=== PATIENT | female | born 1975 | race Caucasian/White ===

== ENCOUNTER 2016-09-28 08:44 | Emergency (ER) | payer OTHER ==
[~2016-09-28] VITALS: Ht 160 cm; Wt 78.9 kg
[2016-09-28 08:47] VITALS: Ht 160 cm; Wt 78.9 kg
[2016-09-28] MEDS ORDERED: KETOROLAC 60 MG INJ IM STA (09:36)
--- NOTE | 2016-09-28 11:46 | RADRPT ---
PROCEDURE: XR Lumbar Spine. CLINICAL INDICATION: Back pain radiating to the left lower extremity. TECHNIQUE: Three views. AP, lateral and cone-down lateral view of the lumbar spine were obtained. COMPARISON: No prior studies are available for comparison. FINDINGS: There is normal stature and alignment of the vertebrae. There is no fracture. There is no lytic or blastic lesion. The disk height is normal. The paravertebral soft tissues are unremarkable. IMPRESSION: 1. Unremarkable images of the lumbar spine. 2. If there is clinical concern regarding a disk abnormality, correlation with MRI of the lumbar sp ine without contrast is advised. RPTAT: QQ .Inocente Gonzales MD, MD Date Time Electronically viewed and signed by .Inocente Gonzales MD, MD on 09/28/2016 11:46 .R/
--- NOTE | 2016-09-28 11:51 | ERD ---
ER Documentation Chief Complaint Date/Time DATE: 09/28/16 Chief Complaint Back pain radiating down the left leg HPI The patient is a 41-year-old female who presents to the Emergency Department with complaint of back pain radiating down the left lower extremity that began today. The patient reports a history of similar symptoms one time in the past, at which time she was diagnosed with sciatica. She notes that last night she was leaning over to put her shoe on, and even since standing back up, she has been experiencing a burning pain to the left lumbar back that radiates into the left buttocks and down the left lower extremity. The pain is worse upon laying flat, and is somewhat improved with sitting. She denies any numbness, paresthesias or weakness of the distal extremity. Denies restricted range of motion. Denies foot drop. Denies fevers, chills, nausea, vomiting, dysuria, hematuria or flank pain. Denies bowel or bladder disturbances, urinary retention or lower extremity weakness. Denies saddle-region anesthesia. She rates her current pain as 4/10, but has not yet taken any medication for pain relief. Denies history of IV drug use or immunocompromised state. ROS All systems reviewed and are negative except as per history of present illness. Medications Home Meds Active Scripts Hydrocodone/Acetaminophen (Edmonson 5-325 Tablet) 1 Each Tablet, 1 EACH PO Q6, #6 TAB Prov:ALESSANDRA FARLEY PA-C 09/28/16 Ibuprofen* (Motrin*) 600 Mg Tab, 600 MG PO Q6, #20 TAB Prov:ALESSANDRA FARLEY PA-C 09/28/16 Methylprednisolone* (Medrol* DOSE PACK) 4 Mg/Dose-Pack Tab.ds.pk, 4 MG PO . DIRECTED, #1 PACKET Prov:ALESSANDRA FARLEY PA-C 09/28/16 Allergies Allergies: Coded Allergies: No Known Drug Allergies (Verified Allergy, Mild, 08/02/14) PMhx/Soc History of Surgery: No Anesthesia Reaction: No Hx Neurological Disorder: No Hx Respiratory Disorders: No Hx Cardiac Disorders: No Hx Psychiatric Problems: No Hx Miscellaneous Medical Probl: No Hx Alcohol Use: No Hx Substance Use: No Hx Tobacco Use: No Smoking Status: Never smoker Physical Exam Vitals Vital Signs Date Time Temp Pulse Resp B/P Pulse Ox O2 Delivery O2 Flow Rate FiO2 09/28/16 08:47 98.1 74 18 124/74 99 Physical Exam GENERAL: Well-developed, well-nourished, in no acute distress HEENT: Head is normocephalic, atraumatic. No scleral pallor or icterus. Conjunctiva pink. Moist mucous membranes. NECK: Supple. No masses, no tenderness, no lymphadenopathy. Trachea midline. No nuchal rigidity. Full range of motion. RESPIRATORY: Lungs are clear to auscultation bilaterally. Equal breath sounds. Normal expiratory effort. CARDIOVASCULAR: Regular rate and rhythm. S1 and S2 normal. GASTROINTESTINAL: Abdomen is soft, nontender, and nondistended. Normal bowel sounds. No abdominal bruits. No pulsatile abdominal masses. FLANK: No CVA tenderness. BACK: No midline tenderness. Tenderness to palpation over the paraspinal muscles of the left lumbosacral back, L4-S1. No vertebral point tenderness. No foot drop. No saddle-region anesthesia. Positive left-sided straight leg raise. Negative right-sided straight leg raise. No warmth. No crepitus. No gross deformities. Strength 5/5 to lower extremities bilaterally. EXTREMITIES: No clubbing, cyanosis, or edema. Normal skin perfusion. Moving all extremities. No focal swelling or erythema. Distal pulses are palpable, 2+ bilaterally. Capillary refill is less than 2 seconds. NEUROLOGIC: The patient is alert, awake, and oriented x 3. No focal neurologic deficits. Motor and sensation grossly intact. INTEGUMENT: Skin is clean, dry and intact. No rashes, lesions, vesicles or petechiae present. PSYCHIATRIC: Appropriate; Cooperative. Results 24 hrs Current Medications Medications (Trade) Dose Ordered Sig/Santa Route PRN Reason Start Time Stop Time Status Last Admin Dose Admin Ketorolac Tromethamine (Toradol) 60 mg ONCE STAT IM 09/28/16 09:36 09/28/16 09:37 DC 09/28/16 09:57 Procedures/MDM DIAGNOSTIC TESTS AND INTERPRETATION: PROCEDURE: XR Lumbar Spine. CLINICAL INDICATION: Back pain radiating to the left lower extremity. TECHNIQUE: Three views. AP, lateral and cone-down lateral view of the lumbar spine were obtained. COMPARISON: No prior studies are available for comparison. FINDINGS:There is normal stature and alignment of the vertebrae. There is no fracture. There is no lytic or blastic lesion. The disk height is normal. The paravertebral soft tissues are unremarkable. IMPRESSION: 1. Unremarkable images of the lumbar spine. 2. If there is clinical concern regarding a disk abnormality, correlation with MRI of the lumbar spine without contrast is advised. .Inocente Gonzales MD, Date Time Electronically viewed and signed by .Inocente Gonzales MD, on 09/28/2016 11:46 MEDICAL DECISION MAKING: This is a 43-year-old female presenting to the Emergency Department with complaint of left lumbar back pain radiating down the left lower extremity. On physical examination the patient had tenderness to palpation noted over the lumbar back, particularly L4-S1. She had a positive left straight leg raise and crossed leg raise, with no saddle-region anesthesia noted. Vital signs were appropriate. She exhibited no altered mental status, neurologic deficits, saddle anesthesia, bowel or bladder disturbances, incontinence, urinary retention, or lower extremity motor or sensory deficits. The differential diagnosis includes, but is not limited to, cauda equina syndrome, epidural abscess, epidural hematoma, osteomyelitis, vertebral fracture , lumbosacral strain, herniated disc, spinal stenosis, nephrolithiasis, osteoarthritis, sciatica, spondylolisthesis, bursitis, fracture, pyelonephritis , abdominal aortic aneurysm, aortic dissection, herpes zoster, radiculopathy, myelopathy, neoplastic disease. No significant abnormalities were noted on x- ray imaging. After rest and administration of Toradol, the patient reports no new complaints, and decreased pain. Upon my review and interpretation of the patient's presentation, clinical data, and overall ER course, I believe the patient's symptoms are most consistent with lumbar back pain with sciatica, uncertain etiology. It is possible that the patient's symptoms are secondary to an underlying herniated disc, however patient will need outpatient MRI for further evaluation. I doubt cord compression or cauda equina syndrome, as patient is with equal, strong motor in bilateral lower extremities, no bowel/bladder disturbances, incontinence or retention, no saddle-anesthesia. Doubt vertebral fracture, no midline bony tenderness, no history of significant recent trauma. Doubt neoplastic disease, metastases unlikely given no night sweats, systemic symptoms, no risk factors. Doubt epidural abscess, patient is afebrile, with no history of IV drug use and is immunocompetent. Renal/aortic pathology not consistent with patient history or physical examination, no pulsatile abdominal masses, equal pulses bilaterally. Doubt pyelonephritis, no systemic symptoms, no flank pain, no CVA tenderness. Doubt zoster, no vesicular lesions noted. At this time, the patient is in stable condition and therefore can be discharged home with a prescription for Edmonson, Ibuprofen and Medrol Dosepak and strict return precautions for signs of deteriorating or worsening condition. The patient is advised to follow up with her primary care provider within 1-2 days for reevaluation and further management, or return to the ER sooner for any new or worsening symptoms. I shared my medical decision making and plan with the patient at length and in great detail, and the patient verbally understands and agrees with the plan for further observation and care as an outpatient. At the time of discharge, all questions were answered. Departure Diagnosis: Primary Impression: Back pain with left-sided sciatica Condition: Stable Patient Instructions: Back Pain W/ Sciatica, Understanding Sciatica Additional Instructions: Llame al doctor ANTHONY y samia rickey DARIA PARA DENTRO DE 1-2 LEWIS.Dgale a la secretaria que nosotros le instruimos hacer esta daria.Avise o llame si marquez condicin se empeora antes de la daria. Regresa aqui si peor o no mejor. ALESSANDRA FARLEY PA-C Sep 28, 2016 11:51
[2016-09-28] MEDS ORDERED: MED4DP PO (11:52)
[2016-09-28] MEDS ORDERED: IBUP-1542 PO (11:52)
[2016-09-28] MEDS ORDERED: HYDR-906 PO (11:52)
== END 2016-09-28 12:00 | disposition home or self-care (01) ==
LOC: FTE 08:44
DX: M54.42 Lumbago with sciatica, left side (principal)
CPT/HCPCS: 72100; 96372; J1885; Z7502